=== PATIENT | female | born 2000 | race African-American/Black ===

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

== ENCOUNTER 2018-07-30 18:02 | Emergency (ER) | payer OTHER ==
[2018-07-30] MEDS: GABAPENTIN 300 MG CAP PO (19:28)
== END 2018-07-30 19:29 | disposition home or self-care (01) ==
LOC: M ED 18:02
DX: G57.91 Unspecified mononeuropathy of right lower limb (principal); G57.92 Unspecified mononeuropathy of left lower limb
CPT/HCPCS: 99282

== ENCOUNTER 2018-10-04 21:32 | Emergency (ER) | payer OTHER ==
[2018-10-04] MEDS: METHOCARBAMOL 500 MG TAB PO (22:41)
[2018-10-04] MEDS: NORCO, ANEXSIA 5/325MG TABLET (HYDROcodone/ACETAMINOPHEN) PO (22:42)
== END 2018-10-04 23:00 | disposition home or self-care (01) ==
LOC: M ED 21:32
DX: M79.601 Pain in right arm (principal); T50.Z95A Adverse effect of other vaccines and biological substances, initial encounter; Y92.9 Unspecified place or not applicable; Y93.9 Activity, unspecified; Z77.098 Contact with and (suspected) exposure to other hazardous, chiefly nonmedicinal, chemicals
CPT/HCPCS: 99282

== ENCOUNTER 2018-11-21 21:31 | Emergency (ER) | payer OTHER ==
[~2018-11-21] VITALS: Ht 170.2 cm; Wt 81.8 kg
[~2018-11-21 21:31] MED LIST: GABA-843 PO; NAPR-885 PO; ROBA500T PO
[2018-11-21] MEDS ORDERED: PROM25TA12 PO (21:40)
[2018-11-21] MEDS ORDERED: COLA100C5 PO (21:40)
[2018-11-21] MEDS ORDERED: OXYC1TAB23 PO (21:40)
[2018-11-21 22:32] VITALS: BP 116/62
== END 2018-11-21 22:38 | disposition home or self-care (01) ==
LOC: M ED 21:31
DX: G89.18 Other acute postprocedural pain (principal); Z79.899 Other long term (current) drug therapy

== ENCOUNTER → 2018-11-27 | Outpatient (CLI) | payer OTHER ==
[~2018-11-27] MED LIST changes: +COLA100C5 PO; +OXYC1TAB23 PO; +PROM25TA12 PO
--- NOTE | 2018-12-06 09:50 | REP ---
CT RIGHT ANKLE WITHOUT CONTRAST: 11/27/2018. Comparison: MRI ankle 10/29/2018 from [facility], just arrived. Technique: Axial soft-tissue and bone windows with coronal and sagittal bone window reconstructions provided. Findings: Subtalar joints are intact. Talus and calcaneus show no fracture or focal lesion. Mortise joint is preserved. Distal tibia and fibula show no focal bone abnormality, avulsion or fracture. No significant edema or joint effusion suggested on these images. The Achilles tendon grossly intact. Talonavicular and calcaneocuboid joints are normal. No loose bodies or talar dome osteochondral defect. Impression: 1. Normal CT ankle. Electronically Signed by Erik Feldman MD 12/06/2018 09:41 A
--- NOTE | 2018-12-06 09:59 | REP ---
CT RIGHT FOOT WITHOUT CONTRAST: 11/27/2018. Clinical history: Foot pain, MR shows cystic lesion third TMP joint. Comparison: MRI right foot 10/29/2018 at [facility]. Technique: Axial soft-tissue and bone windows with coronal and sagittal bone window reconstructions of the foot. Findings: Third TMT joint shows subchondral areas with sclerotic margins in both the proximal head of the third metatarsal and the lateral cuneiform, consistent with the degenerative change. There is narrowing of the joint space and some sclerosis of the articular margins. This is a chronic post-traumatic or degenerative cystic change. There is no other tarsal bone degenerative, cystic or lytic lesion visible. The calcaneus, talus, the other four metatarsals and phalanges are all unremarkable. Subtalar joints intact. There is no soft tissue mass. No other significant finding. Impression: 1. Chronic degenerative change with subchondral cystic change demonstrating sclerotic margins on both sides of the third TMT joint as seen on MRI. Sclerosis along the margins indicating chronic process. There are no other significant findings. I see no other cystic or lytic lesions, destructive bone lesions, foreign bodies or abnormal soft tissue calcifications. That third TMT joint space is slightly narrowed. Otherwise negative. Electronically Signed by Erik Feldman MD 12/06/2018 09:50 A
== END ==
LOC: M RAD 17:30
PROVIDERS: ATTEND Podiatrist
DX: M85.671 Other cyst of bone, right ankle and foot (principal); M89.8X7 Other specified disorders of bone, ankle and foot; M25.871 Other specified joint disorders, right ankle and foot